=== PATIENT | male | born 1980 | race Caucasian/White ===

== ENCOUNTER 2018-07-09 14:12 | Day surgery (SDC) | payer OTHER ==
[2018-07-09] MEDS ORDERED: LIDOCAINE 4% SOLUTION 50 ML BTL (15:31)
[2018-07-09] MEDS ORDERED: FENTAnyl 50 MCG/ML VIAL (16:07)
[2018-07-09] MEDS ORDERED: MIDAZOLAM 1 MG/ML 2 ML INJ ×3 (16:07)
== END 2018-07-09 16:56 | disposition home or self-care (01) ==
LOC: GIL 14:12
DX: Z12.11 Encounter for screening for malignant neoplasm of colon (principal); R10.13 Epigastric pain
CPT/HCPCS: 43239; 87070; 88305; 88312